=== PATIENT | male | born 2000 | race Caucasian/White ===

== ENCOUNTER 2020-04-18 20:34 | Emergency (ER) | payer BC ==
[~2020-04-18] VITALS: Ht 177.8 cm; Wt 95.0 kg
--- NOTE | 2020-04-18 20:37 | PHYS DOC ---
Past History Past Medical History: GERD General Adult HPI: HPI: "I ve been hurting for months off and on... but after pizza this morning... I vomited... and I ve been hurting ever since.. here in my Rt. upper .. It even hurts when I breath... " Patient is a 20 year old male who presents with above hx and complaints dyspnea because of abdomen pain and right upper quadrant. Patient states he has had pain off and on for months. Patient states after eating pizza this morning pain became ill and developed very severe and localized in right upper area. The patient did vomit once. Patient has not had any dark or tarry stools. Patient had a normal stool this morning. No history of bad food. No history of trauma. No history of specific ill contacts. Pain seems to radiate from right upper quadrant to his back and down to his right lower abdomen. Has rebound to right upper quadrant. There is some possible history of gallbladder disease with grandmother and mother. No history of trauma. No history of recent travel outside the [place] area. No history of significant ill contacts. No history intake of consistent return of pain with eating. Pt. has had abdomen pain off and on now for months. No history of colitis with him or family members. No history of tarry stools. No history of fever chills. No history of immunosuppression.. Patient normally follows with Dr. Levi for care. Patient currently rates his pain in right upper quadrant as 100 out of 10. No history of renal stones with him or family members. Review of Systems: Review of Systems: Constitutional: Denies fever or chills Eyes: Denies change in visual acuity HENT: Denies nasal congestion or sore throat Respiratory: Denies cough or shortness of breath Cardiovascular: Denies chest pain or edema GI: Patient complains of right upper quadrant abdominal pain, nausea, vomiting,. Patient denies bloody stools or diarrhea : Denies dysuria Musculoskeletal: Denies back pain or joint pain Integument: Denies rash Neurologic: Denies headache, focal weakness or sensory changes Endocrine: Denies polyuria or polydipsia Lymphatic: Denies swollen glands Psychiatric: Denies depression or anxiety Family History: Family History: May be history of gallbladder disease with grandmother and mother Current Medications: Current Meds: See the nursing for home meds Allergies: Allergies: No known drug allergies Physical Exam: PE: Constitutional: Well developed, well nourished, in acute distress, non-toxic appearance. [] HENT: Normocephalic, atraumatic, bilateral external ears normal, oropharynx moist, no oral exudates, nose normal. [] Eyes: PERRLA, EOMI, conjunctiva normal, no discharge. [] Neck: Normal range of motion, no tenderness, supple, no stridor. [] Cardiovascular:Heart rate regular rhythm, no murmur [] Lungs & Thorax: Bilateral breath sounds equal apex with occasional scattered wheeze on auscultation [] Abdomen: Bowel sounds decreased, soft, right upper quadrant tenderness, no masses, no pulsatile masses. Rebound to right upper quadrant. Testicles nontender. Skin: Warm, dry, no erythema, no rash. [] Back: No tenderness, no CVA tenderness. [] Extremities: No tenderness, no cyanosis, no clubbing, ROM intact, no edema. No psoas sign. Neurologic: Alert and oriented X 3, normal motor function, normal sensory function, no focal deficits noted. [] Psychologic: Affect anxious , judgement normal, mood normal. [] EKG: EKG: [] Radiology/Procedures: Radiology/Procedures: [][address] [address] IMAGING REPORT Signed PATIENT: DAVID FISHER ACCOUNT: [id number] : 2000 LOCATION: ER AGE: 20 SEX: M EXAM STATUS: REG ER ORD. PHYSICIAN: BRAEDEN MOYER MD REASON: Rt. upper quadrant pain, OMNI 240, 30ml & OMNI 300, 75ml PROCEDURE: CT ABD PELV W/ORAL&IV CONTRAST EXAM: CT Abdomen and Pelvis with IV contrast INDICATION: Reason: Rt. upper quadrant pain, OMNI 240, 30ml OMNI 300, 75ml / Spl. Instructions: / History: TECHNIQUE: Multi-detector row CT images were acquired from the lung bases through the abdomen and pelvis with the use of IV contrast. Sagittal and coronal images were acquired from the transaxial data. All CT scans performed at this facility utilize dose optimization techniques as appropriate to the exam, including the following: Automated exposure control and adjustment of the mA and/or KV according to patient size (this includes techniques or standardized protocols for targeted exams where dose is indication/reason for exam). IV CONTRAST: Administered ORAL CONTRAST: Administered COMPARISON: None FINDINGS: LOWER CHEST: Unremarkable LIVER: Unremarkable BILIARY SYSTEM: Gallbladder is unremarkable. Bile ducts are not dilated. PANCREAS: Unremarkable SPLEEN: Unremarkable ADRENALS: Unremarkable KIDNEYS & URETERS: Unremarkable BLADDER: Unremarkable REPRODUCTIVE ORGANS: Unremarkable GASTROINTESTINAL: The stomach, small bowel, and colon are unremarkable. The appendix is normal. MESENTERY/PERITONEUM/RETROPERITONEUM: Unremarkable VASCULAR: Unremarkable LYMPH NODES: No adenopathy OSSEOUS & SOFT TISSUES: Unremarkable IMPRESSION: Unremarkable CT of the abdomen and pelvis. Electronically signed by: Robert Maldonado MD (04/19/2020 12:15 AM) [facility] [place] SIGNED BY: ROBERT MALDONADO MD DATE: 04/19/20 0015 CC: BRAEDEN MOYER MD; AMANDA LEVI MD ~ Heart Score: Risk Factors: Risk Factors: DM, Current or recent (<one month) smoker, HTN, HLP, family history of CAD, obesity. Risk Scores: Score 0 - 3: 2.5% MACE over next 6 weeks - Discharge Home Score 4 - 6: 20.3% MACE over next 6 weeks - Admit for Clinical Observation Score 7 - 10: 72.7% MACE over next 6 weeks - Early Invasive Strategies Course & Med Decision Making: Course & Med Decision Making Pertinent Labs and Imaging studies reviewed. (See chart for details) My time of discharge patient without symptoms.. Patient encouraged to add on a clear fluid diet only. No solids. No milk products. Must allow bowel rest for the next 2 days. Push clear fluids. Follow-up with Dr. Salter. Commend patient consider EGD and colonoscopy with GI. Since this problem has been recurrent for the last several months. There is a concern that this may be related to inflammatory bowel or colitis. Patient take Keflex 500x3 times a day as well as Flagyl 500 mg 3 times a day for the next week. Patient take Pepcid 20 mg twice daily. May take Zofran if actively vomiting. If any increase in pain or any tarry stools must have prompt reevaluation. Patient did have elevated white count which was explained to him may represent infection ( bacterial or viral.) No surgical processes noted on current CT evaluation, consider ultrasound studies for biliary colic. Return if any concerns but this must be followed up since this has been a recurrent problem. Get with Dr. Salter and develop a plan for further evaluation. Impression: 1. Abdomen Pain- Recurrent 2. Leukocytosis 25.5 wth 91 Jessie. 3. Dehydration 4. Nausea and Vomiting 5. Biliary colic? vs colitis versus gastritis [] Warren Disclaimer: Warren Disclaimer: This electronic medical record was generated, in whole or in part, using a voice recognition dictation system. Departure Departure: Disposition: 01 DC HOME SELF CARE/HOMELESS Condition: STABLE Referrals: AMANDA LEVI MD (PCP) Scripts Famotidine (PEPCID) 20 Mg Tablet 20 MG PO BID for GERD for 30 Days, #60 TAB Prov: BRAEDEN MOYER MD 04/19/20 Metronidazole (FLAGYL) 500 Mg Tablet 500 MG PO TID for Leukocytosis for 10 Days, #30 TAB Prov: BRAEDEN MOYER MD 04/19/20 Cephalexin (KEFLEX) 500 Mg Capsule 500 MG PO TID for leukocytosis for 7 Days, % Prov: BRAEDEN MOYER MD 04/19/20 Dragon Disclaimer This chart was dictated in whole or in part using Voice Recognition software in a busy, high-work load, and often noisy Emergency Department environment. It may contain unintended and wholly unrecognized errors or omissions. BRAEDEN MOYER MD Apr 18, 2020 20:37
[2020-04-18] MEDS ORDERED: ALBUTEROL SULFATE 8GM INHALER. INH ONE (20:45)
[2020-04-18] MEDS ORDERED: IV RINGERS SOLUTION,LACTATED 1,000 ML IV SCH (21:03)
[2020-04-18] MEDS ORDERED: ONDANSETRON PF 4 MG/2 ML VIAL. IVP ONE ×2 (21:15)
[2020-04-18] MEDS ORDERED: KETOROLAC 30 MG/ML VIAL. IVP ONE (21:15)
[2020-04-18] MEDS ORDERED: predniSONE 10 MG TABLET PO ONE (21:15)
[2020-04-18] MEDS ORDERED: MAGNESIUM HYDROXIDE 2,400 MG/30 ML ORAL.SUSP. PO ONE (21:15)
[2020-04-18] MEDS ORDERED: FAMOTIDINE 20 MG/2 ML VIAL IVP ONE (21:15)
[2020-04-18 21:32] LABS: BASO # 0.1 x10^3/uL (0.0-0.2); BASO % 0 % (0-3); EOS % 0 % (0-3); HEMATOCRIT 50.2 % (39.0-53.0); HEMOGLOBIN 17.1 g/dL (13.0-17.5); LYMPH % 4 % (24-48); MEAN CORPUSCULAR HEMOGLOBIN 30 pg (25-35); MEAN CORPUSCULAR HGB CONC 34 g/dL (31-37); MEAN CORPUSCULAR VOLUME 87 fL (79-100); MONO # 1.7 x10^3/uL (0.0-1.1); MONO % 7 % (0-9); NEUT # 22.6 x10^3uL (1.8-7.7); NEUT % 89 % (31-73); PLATELET COUNT 403 x10^3/uL (140-400); RED BLOOD COUNT 5.77 x10^6/uL (4.30-5.70); RED CELL DISTRIBUTION WIDTH 13.4 % (11.5-14.5); WHITE BLOOD COUNT 25.5 x10^3/uL (4.0-11.0)
[2020-04-18 21:39] LABS: CALCIUM 11.1 mg/dL (8.5-10.1); CREATININE 2.1 mg/dL (0.7-1.3); GFR 40.5; POTASSIUM 3.8 mmol/L (3.5-5.1)
[2020-04-18 21:45] LABS: ALBUMIN 5.6 g/dL (3.4-5.0); DIRECT BILIRUBIN 0.4 mg/dL (0.0-0.2); TOTAL BILIRUBIN 2.1 mg/dL (0.2-1.0); TOTAL PROTEIN 9.5 g/dL (6.4-8.2)
[2020-04-18] MEDS ORDERED: IOHEXOL 240 MG/ML 50ML VIAL. PO ONE (21:45)
[2020-04-18] MEDS ORDERED: CONTRAST GIVEN. MC PRN (21:45)
[2020-04-18] MEDS ORDERED: IOHEXOL 300 MG/ML 75 ML VIAL. IV ONE (21:45)
[2020-04-18 21:55] LABS: % LYMPHS 6 % (24-48); % MONOS 3 % (0-10); % SEGS 91 % (35-66); PLT ESTIMATE INCREASED (ADEQUATE)
--- NOTE | 2020-04-18 22:15 | RAD ---
EXAM: CHEST AP ONLY INDICATION: Reason: cough, dyspnea / Spl. Instructions: / History: . TECHNIQUE: Single view COMPARISON: None FINDINGS: The heart size is normal. The great vessels appear unremarkable. There is no hilar or mediastinal mass. The lungs are clear. There is no pleural effusion or pneumothorax. There are no significant osseous abnormalities. IMPRESSION: No active cardiopulmonary disease. Electronically signed by: Yoni Maldonado MD (04/18/2020 10:12 PM) [facility] – [place]
[2020-04-18] MEDS ORDERED: IV RINGERS SOLUTION,LACTATED 1,000 ML IV ONE (23:00)
--- NOTE | 2020-04-18 23:01 | RAD ---
PROCEDURE: ABDOMEN SUPINE UPRIGHT STUDY DATE: 04/18/2020 CLINICAL INDICATION / HISTORY: Reason: n,v, abd. pain, dysnpnea because of pain / Spl. Instructions: / History: . TECHNIQUE: Supine and upright AP images of the abdomen were obtained. COMPARISON: None FINDINGS: The lung bases are clear. A nonobstructive bowel gas pattern is present. No organomegaly or pathologic calcifications are identified. No acute osseous abnormality. IMPRESSION: No acute abdominal process. Electronically signed by: Yoni Maldonado MD (04/18/2020 10:58 PM) [facility] [place]
[2020-04-18] MEDS ORDERED: IV NORMAL SALINE 50ML 50 ML ONE (23:07)
[2020-04-18] MEDS ORDERED: cefTRIAXone SODIUM 1 GM VIAL ONE (23:08)
--- NOTE | 2020-04-19 00:18 | RAD ---
EXAM: CT Abdomen and Pelvis with IV contrast INDICATION: Reason: Rt. upper quadrant pain, OMNI 240, 30ml OMNI 300, 75ml / Spl. Instructions: / History: TECHNIQUE: Multi-detector row CT images were acquired from the lung bases through the abdomen and pelvis with the use of IV contrast. Sagittal and coronal images were acquired from the transaxial data. All CT scans performed at this facility utilize dose optimization techniques as appropriate to the exam, including the following: Automated exposure control and adjustment of the mA and/or KV according to patient size (this includes techniques or standardized protocols for targeted exams where dose is indication/reason for exam). IV CONTRAST: Administered ORAL CONTRAST: Administered COMPARISON: None FINDINGS: LOWER CHEST: Unremarkable LIVER: Unremarkable BILIARY SYSTEM: Gallbladder is unremarkable. Bile ducts are not dilated. PANCREAS: Unremarkable SPLEEN: Unremarkable ADRENALS: Unremarkable KIDNEYS & URETERS: Unremarkable BLADDER: Unremarkable REPRODUCTIVE ORGANS: Unremarkable GASTROINTESTINAL: The stomach, small bowel, and colon are unremarkable. The appendix is normal. MESENTERY/PERITONEUM/RETROPERITONEUM: Unremarkable VASCULAR: Unremarkable LYMPH NODES: No adenopathy OSSEOUS & SOFT TISSUES: Unremarkable IMPRESSION: Unremarkable CT of the abdomen and pelvis. Electronically signed by: Yoni Maldonado MD (04/19/2020 12:15 AM) [facility] [place]
[2020-04-19 01:14] VITALS: BP 128/66
[2020-04-19] MEDS ORDERED: METR500T PO (01:30)
[2020-04-19] MEDS ORDERED: CEPH-264 PO (01:30)
[2020-04-19] MEDS ORDERED: FAMO-63 PO (01:31)
[2020-04-19 01:56] LABS: BARBITURATES NEG (NEG); BENZODIAZEPINES NEG (NEG); CANNABINOIDS POS (NEG); COCAINE NEG (NEG); METHADONE NEG (NEG); OPIATES NEG (NEG); PHENCYCLIDINE NEG (NEG)
[2020-04-19 01:58] LABS: AMPHETAMINE/METHAMPHETAMINE NEG (NEG)
[2020-04-19 02:11] LABS: BILIRUBIN,URINE SMALL (NEG); CLARITY,URINE CLEAR; COLOR,URINE YELLOW; GLUCOSE,URINE NEG (NEG); NITRITE,URINE NEG (NEG); UROBILINOGEN,URINE 0.2 mg/dL (0.2 mg/dL)
[2020-04-19 02:12] LABS: BACTERIA,URINE 0 /HPF (0-FEW); RBC,URINE 0 /HPF (0-2); SQUAMOUS EPITHELIAL CELL,UR OCC /LPF; WBC,URINE OCC /HPF (0-4)
== END 2020-04-19 01:40 | disposition home or self-care (01) ==
LOC: ER 20:34
DX: K80.50 Calculus of bile duct without cholangitis or cholecystitis without obstruction (principal); R10.11 Right upper quadrant pain; R11.2 Nausea with vomiting, unspecified; E86.0 Dehydration; D72.829 Elevated white blood cell count, unspecified; K21.9 Gastro-esophageal reflux disease without esophagitis
CPT/HCPCS: 36415; 71045; 74019; 74177; 80048; 80076; 80307; 81001; 82150; 83605; 83690; 84484; 85007; 85025; 85610; 85730; 87040; 94640; 96361; 96365; 96375; 99285; J0696; J1885; J2405; J3490; J7120; J7613; Q9966; Q9967; 94664